=== PATIENT | female | born 1985 | race Caucasian/White ===

== ENCOUNTER 2020-07-14 13:32 | Outpatient (CLI) | payer OTHER | END 2020-07-14 13:49 | disposition home or self-care (01) | LOC: NUCLEAR 13:32 | PROVIDERS: ATTEND Internal Medicine Sports Medicine | DX: C73 Malignant neoplasm of thyroid gland (principal); E89.0 Postprocedural hypothyroidism | CPT/HCPCS: 79005; A9517 ==

== ENCOUNTER 2020-07-18 12:22 | Outpatient (CLI) | payer OTHER | END 2020-07-18 13:00 | disposition home or self-care (01) | LOC: NUCLEAR 12:22 | PROVIDERS: ATTEND Internal Medicine Sports Medicine | DX: C73 Malignant neoplasm of thyroid gland (principal); E89.0 Postprocedural hypothyroidism ==

== ENCOUNTER 2021-02-21 11:23 | Outpatient (CLI) | payer OTHER | END 2021-02-21 11:39 | disposition home or self-care (01) | LOC: RAD 11:23 | DX: M67.864 Other specified disorders of tendon, left knee (principal); M25.562 Pain in left knee; M25.362 Other instability, left knee ==

== ENCOUNTER 2021-06-01 11:35 | Outpatient (CLI) | payer OTHER | END 2021-06-01 11:47 | disposition home or self-care (01) | LOC: MRI 11:35 | DX: M25.562 Pain in left knee (principal) | CPT/HCPCS: 73721 ==

== ENCOUNTER 2022-09-30 14:08 | Outpatient (CLI) | payer OTHER | END 2022-09-30 14:14 | disposition home or self-care (01) | LOC: MRI 14:08 | PROVIDERS: ATTEND Obstetrics & Gynecology Obstetrics | DX: N20.0 Calculus of kidney (principal); N91.2 Amenorrhea, unspecified | CPT/HCPCS: 72195 ==